=== PATIENT | female | born 2000 | race American Indian/Alaskan Native ===

== ENCOUNTER 2020-10-18 23:12 | Emergency (ER) | payer SELFPAY ==
[2020-10-18] MEDS ORDERED: ONDANSETRON 4 MG ODT TAB PO ONE (23:50)
[2020-10-19] MEDS ORDERED: ONDANSETRON 4 MG/2 ML INJ IV ONE (00:09)
[2020-10-19] MEDS ORDERED: MORPHINE 2 MG/1 ML INJ IV ONE (00:09)
--- NOTE | 2020-10-19 00:22 | Emergency Department Report ---
ED Head Trauma HPI - General Chief complaint: Head Injury Stated complaint: HIT HEAD/NECK PAIN/HEADACHE Time Seen by Provider: 10/19/20 00:03 Source: patient Mode of arrival: Ambulatory Limitations: No Limitations - History of Present Illness Initial comments: Patient is a 20-year-old female presents emergency room with complaints of a head injury that occurred around 1 PM today. Patient states that she was playing with her dog when her dog jumped on her and she reports that she hit her head against the countertop. She states a couple of hours ago she began having vomiting. She states that she has had approximately 4 episodes of vomiting. She states that she felt lightheaded after the incident but did not have any episode of loss of consciousness. She states that she also has left ear discomfort but denies any hearing changes. She states that she has sensitivity to light and sounds. She denies any neck pain, back pain, vision changes, numbness, weakness, bowel or bladder incontinence. No past medical history. No allergies to medications. - Related Data Previous Rx's Medication Instructions Recorded Last Taken Type Butalb/Acetaminophen/Caffeine 1 cap PO Q8HR PRN #12 cap 10/19/20 Unknown Rx [Fioricet 50-300-40 mg CAP] Ondansetron [Zofran Odt] 4 mg PO Q8HR PRN #12 tab.rapdis 10/19/20 Unknown Rx Allergies/Adverse reactions: Allergies Allergy/AdvReac Type Severity Reaction Status Date / Time No Known Allergies Allergy Unverified 10/18/20 23:49 ED Review of Systems ROS: Stated complaint: HIT HEAD/NECK PAIN/HEADACHE Other details as noted in HPI Comment: All other systems reviewed and negative ED Past Medical Hx - Past Medical History Previous Medical History?: No - Surgical History Past Surgical History?: No - Social History Smoking Status: Never Smoker Substance Use Type: None - Medications Home Medications: Home Medications Medication Instructions Recorded Confirmed Last Taken Type Butalb/Acetaminophen/Caffeine 1 cap PO Q8HR PRN #12 cap 10/19/20 Unknown Rx [Fioricet 50-300-40 mg CAP] Ondansetron [Zofran Odt] 4 mg PO Q8HR PRN #12 tab.rapdis 10/19/20 Unknown Rx ED Physical Exam - General Limitations: No Limitations General appearance: alert, in no apparent distress - Head Head exam: Present: other (no skull or facial bony ttp) - Eye Eye exam: Present: normal appearance, PERRL, EOMI. Absent: periorbital swelling, periorbital tenderness - ENT ENT exam: Present: mucous membranes moist, TM's normal bilaterally, normal external ear exam, other (no nava signs, no hemotypanum) - Neck Neck exam: Present: normal inspection, full ROM. Absent: tenderness, meningismus - Respiratory Respiratory exam: Present: normal lung sounds bilaterally. Absent: respiratory distress, wheezes, rales, rhonchi, stridor, chest wall tenderness, accessory muscle use, decreased breath sounds, prolonged expiratory - Cardiovascular Cardiovascular Exam: Present: regular rate, normal rhythm, normal heart sounds. Absent: systolic murmur, diastolic murmur, rubs, gallop - Neurological Exam Neurological exam: Present: alert, oriented X3, CN II-XII intact, normal gait. Absent: motor sensory deficit - Psychiatric Psychiatric exam: Present: normal affect, normal mood - Skin Skin exam: Present: warm, dry, intact ED Course Vital Signs 10/19/20 10/19/20 00:01 00:18 Temperature 98.4 F Pulse Rate 59 L Respiratory 17 18 Rate Blood Pressure 153/102 [Right] O2 Sat by Pulse 100 Oximetry - Radiology Data Radiology results: report reviewed Ordering Physician: KIERRA KAUR Date of Service: 10/19/20 Procedure(s): CT head/brain wo con Accession Number(s): [id number] cc: KIERRA KAUR CT head without contrast INDICATION : Headache following injury TECHNIQUE: Axial imaging performed from the skull apex through the skull base without the use of contrast. All CT examinations performed at this facility utilize dose modulation, iterative reconstruction or weight-based dosing, when appropriate, to reduce radiation dose to as low as reasonably achievable. COMPARISON: None FINDINGS: No acute intracranial hemorrhage or parenchymal abnormality. Ventricles are normal in size and appear symmetric. Soft tissues including the orbits appear normal. No acute osseous abnormality. Sinuses and mastoid air cells are clear. IMPRESSION: No acute abnormality. Signer Name: Davin Garcia MD Signed: 10/19/2020 12:57 AM Workstation Name: [id number] Transcribed By: BC Dictated By: Davin Garcia MD Electronically Authenticated By: Davin Garcia MD Signed Date/Time: 10/19/2056 DD/ TD/TT: Print - Medical Decision Making Patient is a 20-year-old female presents emergency room with complaints of a head injury that occurred around 1 PM today. Patient states that she was playing with her dog when her dog jumped on her and she reports that she hit her head against the countertop. She states a couple of hours ago she began having vomiting. She states that she has had approximately 4 episodes of vomiting. She states that she felt lightheaded after the incident but did not have any episode of loss of consciousness. She states that she also has left ear discomfort but denies any hearing changes. She states that she has sensitivity to light and sounds. She denies any neck pain, back pain, vision changes, numbness, weakness, bowel or bladder incontinence. No past medical history. No allergies to medications. Vitals are stable. No focal neuro deficits on exam, no midline or paraspinal C-spine tenderness outpatient, no hemotympanum, no nava signs, no raccoon eyes. Patient is actively vomiting. CT head without contrast: FINDINGS: No acute intracranial hemorrhage or parenchymal abnormality. Ventricles are normal in size and appear symmetric. Soft tissues including the orbits appear normal. No acute osseous abnormality. Sinuses and mastoid air cells are clear. Patient given medications while in the emergency department with improvement of her symptoms, she was observed in the emergency room without any further complications, she was able to tolerate p.o. intake. Symptoms and examination likely consistent with concussion. Patient given prescription for medication. Advised patient please take medication as prescribed. Please follow-up with your neurologist. Please do not participate in contact sports. Please be cleared by a neurologist or primary care doctor prior to operating a motor vehicle. Please avoid screen time such as your computer, cell phone, tablet. Return to emergency room immediately for any new or symptoms. Critical care attestation.: If time is entered above; I have spent that time in minutes in the direct care of this critically ill patient, excluding procedure time. ED Disposition Clinical Impression: Concussion Qualifiers: Encounter type: initial encounter Loss of consciousness presence/duration: without LOC Qualified Code(s): S06.0X0A - Concussion without loss of consciousness, initial encounter Disposition: DC-01 TO HOME OR SELFCARE Is pt being admited?: No Does the pt Need Aspirin: No Condition: Stable Instructions: Head Injury, Adult, Concussion, Adult Additional Instructions: patient please take medication as prescribed. Please follow-up with your neurologist. Please do not participate in contact sports. Please be cleared by a neurologist or primary care doctor prior to operating a motor vehicle. Please avoid screen time such as your computer, cell phone, tablet. Return to emergency room immediately for any new or symptoms. Prescriptions: Butalb/Acetaminophen/Caffeine [Fioricet 50-300-40 mg CAP] 1 cap PO Q8HR PRN #12 cap PRN Reason: headache Ondansetron [Zofran Odt] 4 mg PO Q8HR PRN #12 tab.rapdis PRN Reason: nausea/vomiting Referrals: AYSE CELESTIN MD [Referring] - 2-3 Days MOHAMUD SALDANA MD [Staff Physician] - 2-3 Days your, primary care doctor [Other] - 2-3 Days Time of Disposition: 02:30 Print Language: AUSTRIAN
--- NOTE | 2020-10-19 01:02 | Cat Scan Report ---
CT head without contrast INDICATION : Headache following injury TECHNIQUE: Axial imaging performed from the skull apex through the skull base without the use of con trast. All CT examinations performed at this facility utilize dose modulation, iterative reconstruct ion or weight-based dosing, when appropriate, to reduce radiation dose to as low as reasonably achiev able. COMPARISON: None FINDINGS: No acute intracranial hemorrhage or parenchymal abnormality. Ventricles are normal in si ze and appear symmetric. Soft tissues including the orbits appear normal. No acute osseous abnorm ality. Sinuses and mastoid air cells are clear. IMPRESSION: No acute abnormality. Signer Name: Davin Garcia MD Signed: 10/19/2020 12:57 AM Workstation Name: [id number]
[2020-10-19 03:32] VITALS: BP 125/66
== END 2020-10-19 03:37 | disposition home or self-care (01) ==
LOC: ED 23:12
DX: S06.0X0A Concussion without loss of consciousness, initial encounter (principal); X58.XXXA Exposure to other specified factors, initial encounter; W22.8XXA Striking against or struck by other objects, initial encounter; Y93.89 Activity, other specified; Y92.89 Other specified places as the place of occurrence of the external cause; Y99.8 Other external cause status
CPT/HCPCS: 70450; 96374; 96375; 99284; J2270; J2405; Q0162